=== PATIENT | female | born 1945 ===

== ENCOUNTER 2021-12-19 17:34 | Inpatient (IN) | payer MEDICARE ==
[~2021-12-19] VITALS: Ht 160 cm; Wt 69.9 kg
[~2021-12-19 17:34] MED LIST: ATROPINE 1MG SYG IVP ONE; CACL 1GM SYG IVP ONE; EPINEPHRINE 1MG SYG 10ML IVP ONE; SODIUM BICARB 8.4% 50ML SYRINGE IVP ONE
[2021-12-19] MEDS ORDERED: NOREPINEPHRIN 4MG/NS 250ML 250 ML IV ONE (17:50)
[2021-12-19] MEDS ORDERED: 0.9%NACL 1000ML 1,000 ML IV ONE (17:51)
[2021-12-19 18:02] LABS: BASOPHILS % (AUTO) 0.2 % (0.0-5.0); EOSINOPHILS % (AUTO) 1.3 % (0.0-8.0); HEMATOCRIT 28.9 % (36-48); LYMPHOCYTES % (AUTO) 74.6 % (21.0-51.0); MEAN CORPUSCULAR HEMOGLOBIN 29.2 pg (27.0-33.0); MEAN CORPUSCULAR HGB CONC 28.7 g/dL (32.0-36.0); MEAN CORPUSCULAR VOLUME 101.8 fL (79-99); MONOCYTES % (AUTO) 2.9 % (3.0-13.0); NEUTROPHILS % (AUTO) 17.8 % (40.0-77.0); PLATELET COUNT (AUTO) 141 K/uL (130-400); RED BLOOD CELL COUNT(AUTO) 2.84 MIL/uL (4.00-5.50); RED CELL DISTRIBUTION WIDTH 13.9 % (11.0-15.5); WHITE BLOOD COUNT (AUTO) 8.5 K/uL (4.8-10.8)
[2021-12-19] MEDS ORDERED: SODIUM BICARB 50MEQ 50ML VIAL 50 ML ONE (18:08)
[2021-12-19 18:21] LABS: ALBUMIN 2.9 g/dL (3.5-5.0); BILIRUBIN,TOTAL 0.2 mg/dL (0.2-1.0); CREATININE 5.2 mg/dL (0.5-1.5); TOTAL PROTEIN, SERUM 5.6 g/dL (6.0-8.3)
[2021-12-19 18:34] LABS: ABG BASE EXCESS -16.8 mmol/L (-2.0-3.0); ABG HCO3 12.6 mmol/L (21.0-28.0); ABG PCO2 48 mmHg (32-45)
[2021-12-19 18:36] LABS: B-TYPE NATRIURETIC PEPTIDE 492 pg/mL (0-100)
[2021-12-19 19:08] LABS: APPEARANCE,URINE Cloudy (CLEAR); BILIRUBIN,URINE Negative (NEGATIVE); COLOR,URINE Yellow (YELLOW); GLUCOSE, URINE (UA) Negative (NEGATIVE); KETONES,URINE Negative (NEGATIVE); LEUKOCYTE ESTERASE ,URINE Trace (NEGATIVE); NITRATE,URINE Negative (NEGATIVE); OCCULT BLOOD,URINE Negative (NEGATIVE); PROTEIN,URINE 300 mg/dL (NEGATIVE); UROBILINOGEN,URINE 0.2 mg/dL (0.2-1.0)
[2021-12-19 19:25] LABS: AMORPHOUS SEDIMENT,UR Moderate /LPF (None Seen); BACTERIA,URINE Few /HPF (None Seen); MUCUS,URINE None Seen LPF (None Seen); RBC,URINE 0-1 /HPF (0-1); SQUAMOUS EPITHELIAL CELL,UR Moderate /HPF (0-2)
[2021-12-19 19:26] LABS: INR 1.45 (0.85-1.15); PROTHROMBIN TIME 15.5 SEC (9.6-11.6)
[2021-12-19 19:28] LABS: PARTIAL THROMBOPLASTIN TIME 63.4 SEC (26.3-35.5)
[2021-12-19] MEDS ORDERED: MORPHINE 2 MG SYG IV PRN (19:30)
[2021-12-19] MEDS ORDERED: FENTANYL 2500MCG+NS 250ML 250 ML IV ONE (19:42)
[2021-12-19 19:56] LABS: ABG BASE EXCESS -15.7 mmol/L (-2.0-3.0); ABG HCO3 12.1 mmol/L (21.0-28.0); ABG OXYGEN SATURATION 85.8 % (95.0-99.0); ABG PCO2 36 mmHg (32-45)
[2021-12-19] MEDS ORDERED: MIDAZOLAM 100MG-0.9% NS 100ML 100ML BAG IV ONE (20:30)
[2021-12-19] MEDS ORDERED: CALCIUM GLUC 1GM 1 GM in 0.9%NACL 100ML 100 ML IV ONE (20:30)
[2021-12-19] MEDS ORDERED: FENTANYL 2500MCG+NS 250ML IV.SOLN IV SCH (20:30)
[2021-12-19] MEDS ORDERED: FUROSEMIDE 40 MG UD CUP PO ONE (20:30)
[2021-12-19] MEDS ORDERED: SODIUM BICARB 8.4% 50ML SYRINGE IVP ONE (20:30)
[2021-12-19] MEDS ORDERED: INSULIN HUMULIN R 100 UNIT/ML 3ML IV ONE (20:30)
[2021-12-19] MEDS ORDERED: DEXTROSE 50%-WATER 25 GM/50 ML VIAL IV ONE (20:30)
[2021-12-19 20:35] LABS: HEMATOCRIT 29.1 % (36-48)
[2021-12-19 20:50] LABS: ALBUMIN 2.8 g/dL (3.5-5.0); BILIRUBIN,TOTAL 0.4 mg/dL (0.2-1.0); CREATININE 4.7 mg/dL (0.5-1.5); TOTAL PROTEIN, SERUM 5.5 g/dL (6.0-8.3)
[2021-12-19 21:00] LABS: POTASSIUM 7.5 mmol/L (3.5-5.1)
[2021-12-19] MEDS ORDERED: FUROSEMIDE 40MG VIAL ONE (21:10)
[2021-12-19] MEDS: FUROSEMIDE 20MG VIAL IV SCH (21:21)
[2021-12-19] MEDS: MEROPENEM 1 GM VIAL IVP SCH (21:23)
[2021-12-19] MEDS ORDERED: NA ZIRCON CYCLOSIL(LOKELMA 10GM) PO ONE (23:00)
[2021-12-19 23:30] LABS: CREATININE 4.8 mg/dL (0.5-1.5)
[2021-12-19 23:35] LABS: POTASSIUM 7.4 mmol/L (3.5-5.1)
[2021-12-20] VITALS (54 sets, daily range): BP systolic 116–169; BP diastolic 57–76
[2021-12-20 01:19] LABS: CREATININE 4.7 mg/dL (0.5-1.5)
[2021-12-20] MEDS: INSULIN HUMULIN R 100 UNIT/ML 3ML SQ SCH ×4 (01:21→17:15)
[2021-12-20 01:22] LABS: POTASSIUM 6.3 mmol/L (3.5-5.1)
[2021-12-20] MEDS ORDERED: HEPARIN 5,000 UNIT VIAL IV SCH (02:00)
[2021-12-20] MEDS ORDERED: NOREPINEPHRIN 4MG/NS 250ML 250 ML IV ONE (02:38)
[2021-12-20 02:55] LABS: % IRON SATURATION 56.9 % (22-44)
[2021-12-20] MEDS: SODIUM BICARB 8.4% 50ML SYRING 150 MEQ in DEXTROSE 5%-WATER 1,000 ML IVP SCH ×3 (04:00→08:35)
[2021-12-20 04:07] LABS: BASOPHILS % (AUTO) 0.2 % (0.0-5.0); HEMATOCRIT 31.6 % (36-48); LYMPHOCYTES % (AUTO) 6.3 % (21.0-51.0); MEAN CORPUSCULAR HEMOGLOBIN 29.2 pg (27.0-33.0); MEAN CORPUSCULAR HGB CONC 32.9 g/dL (32.0-36.0); MEAN CORPUSCULAR VOLUME 88.8 fL (79-99); MONOCYTES % (AUTO) 4.6 % (3.0-13.0); NEUTROPHILS % (AUTO) 88.5 % (40.0-77.0); PLATELET COUNT (AUTO) 156 K/uL (130-400); RED BLOOD CELL COUNT(AUTO) 3.56 MIL/uL (4.00-5.50); RED CELL DISTRIBUTION WIDTH 13.7 % (11.0-15.5)
[2021-12-20 04:29] LABS: ALBUMIN 3.5 g/dL (3.5-5.0); BILIRUBIN,TOTAL 0.4 mg/dL (0.2-1.0); CREATININE 3.3 mg/dL (0.5-1.5); POTASSIUM 4.6 mmol/L (3.5-5.1); TOTAL PROTEIN, SERUM 6.7 g/dL (6.0-8.3)
[2021-12-20 04:36] LABS: B-TYPE NATRIURETIC PEPTIDE 599 pg/mL (0-100)
[2021-12-20 05:24] LABS: ERYTHROCYTE SEDIMENTATION RATE 11 MM/HR (0-30)
[2021-12-20] MEDS: FUROSEMIDE 20MG VIAL IV SCH (08:00)
[2021-12-20] MEDS: FAMOTIDINE 20MG VIAL IV SCH (08:24)
[2021-12-20] MEDS ORDERED: VANCOMYCIN PROTOCOL PER PHARMACY IV SCH (08:30)
[2021-12-20 08:31] LABS: ABG BASE EXCESS -2.3 mmol/L (-2.0-3.0); ABG HCO3 21.2 mmol/L (21.0-28.0); ABG PCO2 31 mmHg (32-45)
[2021-12-20] MEDS: ASPIRIN 81MG CHEW TAB PO SCH (08:53)
[2021-12-20] MEDS: HEPARIN 5,000 UNIT VIAL SQ SCH ×2 (08:54→20:24)
[2021-12-20] MEDS ORDERED: VANCOMYCIN 1G/250ML KIT 250 ML IV SCH (09:00)
[2021-12-20 14:48] LABS: ABG BASE EXCESS -0.4 mmol/L (-2.0-3.0); ABG HCO3 22.5 mmol/L (21.0-28.0); ABG PCO2 31 mmHg (32-45)
[2021-12-20 18:55] LABS: HEPATITIS B SURFACE ANTIGEN Non-Reactive (Negative)
[2021-12-20] MEDS: MEROPENEM 1 GM VIAL IVP SCH (20:21)
[2021-12-20] MEDS ORDERED: ACETAMINOPHEN 650 MG/20.3 ML UDCUP PEG PRN (23:30)
[2021-12-21] VITALS (25 sets, daily range): BP systolic 90–167; BP diastolic 49–87
[2021-12-21] MEDS ORDERED: LABETALOL 20MG VIAL IV ONE
[2021-12-21 04:24] LABS: ALBUMIN 2.8 g/dL (3.5-5.0); BILIRUBIN,TOTAL 0.6 mg/dL (0.2-1.0); CREATININE 4.6 mg/dL (0.5-1.5); MAGNESIUM 1.9 mg/dL (1.80-2.40); PHOSPHORUS 4.3 mg/dL (2.5-4.9); POTASSIUM 5.6 mmol/L (3.5-5.1); TOTAL PROTEIN, SERUM 5.8 g/dL (6.0-8.3)
[2021-12-21] MEDS: INSULIN HUMULIN R 100 UNIT/ML 3ML SQ SCH ×4 (06:39→17:11)
[2021-12-21] MEDS: HEPARIN 5,000 UNIT VIAL SQ SCH ×2 (08:21→20:08)
[2021-12-21] MEDS: ASPIRIN 81MG CHEW TAB PO SCH (08:21)
[2021-12-21] MEDS: FAMOTIDINE 20MG VIAL IV SCH (08:22)
[2021-12-21] MEDS: SODIUM BICARB 50MEQ 50ML VIAL IV SCH (09:53)
[2021-12-21] MEDS: KAYEXALATE 15GM/60ML PO SCH (09:53)
[2021-12-21] MEDS: INSULIN HUMULIN R 100 UNIT/ML 3ML IV SCH (09:56)
[2021-12-21] MEDS ORDERED: AMIODARONE 150MG VIAL 150 MG in DEXTROSE 5%-WATER 100 ML IV SCH (11:30)
[2021-12-21] MEDS: AMIODARONE 900MG VIAL 360 MG in DEXTROSE 5%-WATER 200 ML IV SCH (11:56)
[2021-12-21] MEDS: AMIODARONE 540 MG/D5W 300ML (0.5MG/MIN) IV SCH ×2 (18:24)
[2021-12-21] MEDS: MEROPENEM 1 GM VIAL IVP SCH (20:06)
[2021-12-22] VITALS (23 sets, daily range): BP systolic 145–173; BP diastolic 55–78
[2021-12-22 03:48] LABS: BASOPHILS % (AUTO) 0.1 % (0.0-5.0); HEMATOCRIT 23.9 % (36-48); LYMPHOCYTES % (AUTO) 3.9 % (21.0-51.0); MEAN CORPUSCULAR HEMOGLOBIN 28.8 pg (27.0-33.0); MEAN CORPUSCULAR HGB CONC 32.6 g/dL (32.0-36.0); MEAN CORPUSCULAR VOLUME 88.2 fL (79-99); MONOCYTES % (AUTO) 3.3 % (3.0-13.0); NEUTROPHILS % (AUTO) 90.3 % (40.0-77.0); PLATELET COUNT (AUTO) 87 K/uL (130-400); RED BLOOD CELL COUNT(AUTO) 2.71 MIL/uL (4.00-5.50); RED CELL DISTRIBUTION WIDTH 14.3 % (11.0-15.5); WHITE BLOOD COUNT (AUTO) 13.5 K/uL (4.8-10.8)
[2021-12-22 04:07] LABS: ALBUMIN 2.3 g/dL (3.5-5.0); BILIRUBIN,TOTAL 0.5 mg/dL (0.2-1.0); CREATININE 5.1 mg/dL (0.5-1.5); POTASSIUM 4.4 mmol/L (3.5-5.1)
[2021-12-22] MEDS: INSULIN HUMULIN R 100 UNIT/ML 3ML SQ SCH ×5 (06:19→23:54)
[2021-12-22] MEDS: ASPIRIN 81MG CHEW TAB PO SCH (08:47)
[2021-12-22] MEDS ORDERED: VANCOMYCIN 1G/250ML KIT 250 ML IV SCH (09:00)
[2021-12-22] MEDS: HEPARIN 5,000 UNIT VIAL SQ SCH ×2 (09:14→19:56)
[2021-12-22 09:38] LABS: HEMATOCRIT 24.4 % (36-48); MEAN CORPUSCULAR HEMOGLOBIN 30.3 pg (27.0-33.0); MEAN CORPUSCULAR HGB CONC 33.6 g/dL (32.0-36.0); PLATELET COUNT (AUTO) 98 K/uL (130-400); RED BLOOD CELL COUNT(AUTO) 2.71 MIL/uL (4.00-5.50); RED CELL DISTRIBUTION WIDTH 14.4 % (11.0-15.5); WHITE BLOOD COUNT (AUTO) 13.4 K/uL (4.8-10.8)
[2021-12-22] MEDS: SODIUM BICARB 50MEQ 50ML VIAL IV SCH (10:00)
[2021-12-22] MEDS: KAYEXALATE 15GM/60ML PO SCH (10:00)
[2021-12-22] MEDS: INSULIN HUMULIN R 100 UNIT/ML 3ML IV SCH (10:00)
[2021-12-22 10:37] LABS: BAND NEUTROPHILS % (MANUAL) 14 % (0-2); LYMPHOCYTES % (MANUAL) 4 % (22-44); MAN.DIFF COMMENT-IMPRESSION MANUAL DIFFERENTIAL; SEGMENTED NEUTROPHILS % 82 % (40-70)
[2021-12-22 10:38] LABS: PLATELET MORPHOLOGY COMMENT MARKED DECREASE
[2021-12-22] MEDS: FAMOTIDINE 20MG TAB NG SCH (10:41)
[2021-12-22] MEDS: ARTIFICAL TEARS SOL 15 ML OU PRN (21:14)
[2021-12-22] MEDS: LABETALOL 20MG VIAL IV PRN (21:15)
[2021-12-23] VITALS (24 sets, daily range): BP systolic 150–168; BP diastolic 55–79
[2021-12-23] MEDS: LABETALOL 20MG VIAL IV PRN ×2 (03:28→21:46)
[2021-12-23 04:36] LABS: BASOPHILS % (AUTO) 0.1 % (0.0-5.0); EOSINOPHILS % (AUTO) 0.1 % (0.0-8.0); LYMPHOCYTES % (AUTO) 4.5 % (21.0-51.0); MEAN CORPUSCULAR HEMOGLOBIN 28.6 pg (27.0-33.0); MEAN CORPUSCULAR HGB CONC 31.7 g/dL (32.0-36.0); MEAN CORPUSCULAR VOLUME 90.4 fL (79-99); MONOCYTES % (AUTO) 4.2 % (3.0-13.0); NEUTROPHILS % (AUTO) 89.9 % (40.0-77.0); NUCLEATED RED BLOOD CELLS 0.1 % (0.0-0.19); PLATELET COUNT (AUTO) 107 K/uL (130-400); RED BLOOD CELL COUNT(AUTO) 3.32 MIL/uL (4.00-5.50); RED CELL DISTRIBUTION WIDTH 14.2 % (11.0-15.5)
[2021-12-23 04:54] LABS: ALBUMIN 2.8 g/dL (3.5-5.0); BILIRUBIN,TOTAL 0.5 mg/dL (0.2-1.0); CREATININE 5.4 mg/dL (0.5-1.5); MAGNESIUM 2.3 mg/dL (1.80-2.40); PHOSPHORUS 5.5 mg/dL (2.5-4.9); POTASSIUM 4.1 mmol/L (3.5-5.1); TOTAL PROTEIN, SERUM 6.3 g/dL (6.0-8.3)
[2021-12-23] MEDS: INSULIN HUMULIN R 100 UNIT/ML 3ML SQ SCH ×4 (06:00→23:42)
[2021-12-23] MEDS: FAMOTIDINE 20MG TAB NG SCH (08:22)
[2021-12-23] MEDS: ASPIRIN 81MG CHEW TAB PO SCH (08:23)
[2021-12-23] MEDS: HEPARIN 5,000 UNIT VIAL SQ SCH ×2 (08:48→19:57)
[2021-12-23] MEDS: ARTIFICAL TEARS SOL 15 ML OU PRN ×2 (09:28→21:46)
[2021-12-23] MEDS ORDERED: IPRATROPIUM/ALBUTEROL SULFATE 3 ML SOLUTION IH PRN (09:30)
[2021-12-23] MEDS ORDERED: AMIODARONE 900MG VIAL IV ONE (22:50)
[2021-12-23] MEDS ORDERED: DEXTROSE 5%-WATER 500 ML IV ONE (22:52)
[2021-12-23] MEDS: AMIODARONE 900MG VIAL 360 MG in DEXTROSE 5%-WATER 200 ML IV SCH (22:57)
[2021-12-24] VITALS (24 sets, daily range): BP systolic 152–169; BP diastolic 64–85
[2021-12-24 00:44] LABS: BASOPHILS % (AUTO) 0.1 % (0.0-5.0); HEMATOCRIT 25.6 % (36-48); LYMPHOCYTES % (AUTO) 2.8 % (21.0-51.0); MEAN CORPUSCULAR HEMOGLOBIN 28.8 pg (27.0-33.0); MEAN CORPUSCULAR HGB CONC 31.6 g/dL (32.0-36.0); MEAN CORPUSCULAR VOLUME 91.1 fL (79-99); NEUTROPHILS % (AUTO) 92.5 % (40.0-77.0); PLATELET COUNT (AUTO) 108 K/uL (130-400); RED BLOOD CELL COUNT(AUTO) 2.81 MIL/uL (4.00-5.50); WHITE BLOOD COUNT (AUTO) 13.4 K/uL (4.8-10.8)
[2021-12-24 01:03] LABS: ALBUMIN 2.4 g/dL (3.5-5.0); BILIRUBIN,TOTAL 0.5 mg/dL (0.2-1.0); CREATININE 5.6 mg/dL (0.5-1.5); POTASSIUM 3.6 mmol/L (3.5-5.1); TOTAL PROTEIN, SERUM 5.9 g/dL (6.0-8.3)
[2021-12-24] MEDS: INSULIN HUMULIN R 100 UNIT/ML 3ML SQ SCH ×4 (06:01→23:53)
[2021-12-24] MEDS: FAMOTIDINE 20MG TAB NG SCH (08:19)
[2021-12-24] MEDS: ASPIRIN 81MG CHEW TAB PO SCH (08:19)
[2021-12-24] MEDS: HEPARIN 5,000 UNIT VIAL SQ SCH ×2 (08:20→20:26)
[2021-12-25] VITALS (24 sets, daily range): BP systolic 141–173; BP diastolic 57–85
[2021-12-25 03:29] LABS: ABG BASE EXCESS -2.6 mmol/L (-2.0-3.0); ABG HCO3 18.5 mmol/L (21.0-28.0); ABG OXYGEN SATURATION 98.2 % (95.0-99.0); ABG PCO2 24 mmHg (32-45)
[2021-12-25 04:27] LABS: BASOPHILS % (AUTO) 0.2 % (0.0-5.0); EOSINOPHILS % (AUTO) 0.1 % (0.0-8.0); HEMATOCRIT 26.6 % (36-48); MEAN CORPUSCULAR HEMOGLOBIN 28.8 pg (27.0-33.0); MEAN CORPUSCULAR HGB CONC 31.2 g/dL (32.0-36.0); MEAN CORPUSCULAR VOLUME 92.4 fL (79-99); MONOCYTES % (AUTO) 6.4 % (3.0-13.0); NEUTROPHILS % (AUTO) 88.4 % (40.0-77.0); PLATELET COUNT (AUTO) 120 K/uL (130-400); RED BLOOD CELL COUNT(AUTO) 2.88 MIL/uL (4.00-5.50); RED CELL DISTRIBUTION WIDTH 13.9 % (11.0-15.5); WHITE BLOOD COUNT (AUTO) 11.3 K/uL (4.8-10.8)
[2021-12-25 04:58] LABS: ALBUMIN 2.3 g/dL (3.5-5.0); BILIRUBIN,TOTAL 0.4 mg/dL (0.2-1.0); CREATININE 5.7 mg/dL (0.5-1.5); MAGNESIUM 2.4 mg/dL (1.80-2.40); PHOSPHORUS 5.2 mg/dL (2.5-4.9); POTASSIUM 3.5 mmol/L (3.5-5.1)
[2021-12-25] MEDS: INSULIN HUMULIN R 100 UNIT/ML 3ML SQ SCH ×3 (05:26→18:56)
[2021-12-25] MEDS ORDERED: CALC667C10 PO (08:41)
[2021-12-25] MEDS ORDERED: FURO20TA4 PO (08:41)
[2021-12-25] MEDS ORDERED: SIMV-43 PO (08:41)
[2021-12-25] MEDS ORDERED: LINA5TAB PO (08:41)
[2021-12-25] MEDS ORDERED: AMLO-258 PO (08:41)
[2021-12-25] MEDS ORDERED: CARV3.12 PO (08:41)
[2021-12-25] MEDS ORDERED: VANCOMYCIN 1G/250ML KIT 250 ML IV SCH (09:00)
[2021-12-25] MEDS: FAMOTIDINE 20MG TAB NG SCH (09:46)
[2021-12-25] MEDS: HEPARIN 5,000 UNIT VIAL SQ SCH ×2 (09:49→21:48)
[2021-12-25] MEDS: AMIODARONE 540 MG/D5W 300ML (0.5MG/MIN) IV SCH ×2 (12:00)
[2021-12-25] MEDS: AMIODARONE 200 MG TABLET PO SCH (21:47)
[2021-12-25] MEDS: BALSAM PERU/CASTOR OIL 60 GM TUBE TP SCH (21:47)
[2021-12-26] VITALS (24 sets, daily range): BP systolic 150–191; BP diastolic 61–77
[2021-12-26] MEDS: INSULIN HUMULIN R 100 UNIT/ML 3ML SQ SCH ×4 (00:20→18:39)
[2021-12-26 03:21] LABS: ABG BASE EXCESS 0.4 mmol/L (-2.0-3.0); ABG HCO3 21.3 mmol/L (21.0-28.0); ABG OXYGEN SATURATION 96.8 % (95.0-99.0); ABG PCO2 26 mmHg (32-45)
[2021-12-26 04:38] LABS: BASOPHILS % (AUTO) 0.2 % (0.0-5.0); EOSINOPHILS % (AUTO) 0.5 % (0.0-8.0); HEMATOCRIT 26.7 % (36-48); LYMPHOCYTES % (AUTO) 5.6 % (21.0-51.0); MEAN CORPUSCULAR HEMOGLOBIN 29.1 pg (27.0-33.0); MEAN CORPUSCULAR HGB CONC 32.2 g/dL (32.0-36.0); MEAN CORPUSCULAR VOLUME 90.2 fL (79-99); MONOCYTES % (AUTO) 6.4 % (3.0-13.0); NEUTROPHILS % (AUTO) 84.7 % (40.0-77.0); PLATELET COUNT (AUTO) 145 K/uL (130-400); RED BLOOD CELL COUNT(AUTO) 2.96 MIL/uL (4.00-5.50); RED CELL DISTRIBUTION WIDTH 14.2 % (11.0-15.5); WHITE BLOOD COUNT (AUTO) 8.7 K/uL (4.8-10.8)
[2021-12-26 04:49] LABS: ALBUMIN 2.2 g/dL (3.5-5.0); BILIRUBIN,TOTAL 0.4 mg/dL (0.2-1.0); CREATININE 5.9 mg/dL (0.5-1.5); MAGNESIUM 2.6 mg/dL (1.80-2.40); PHOSPHORUS 4.2 mg/dL (2.5-4.9); POTASSIUM 3.4 mmol/L (3.5-5.1); TOTAL PROTEIN, SERUM 6.2 g/dL (6.0-8.3)
[2021-12-26] MEDS: AMIODARONE 200 MG TABLET PO SCH ×2 (09:33→21:18)
[2021-12-26] MEDS: FAMOTIDINE 20MG TAB NG SCH (09:33)
[2021-12-26] MEDS: BALSAM PERU/CASTOR OIL 60 GM TUBE TP SCH ×3 (09:34→21:18)
[2021-12-26] MEDS: HEPARIN 5,000 UNIT VIAL SQ SCH ×2 (09:34→21:20)
[2021-12-26] MEDS: HYDRALAZINE HCL 10 MG TABLET PO PRN (23:15)
[2021-12-27] VITALS (25 sets, daily range): BP systolic 157–182; BP diastolic 54–72
[2021-12-27] MEDS: INSULIN HUMULIN R 100 UNIT/ML 3ML SQ SCH ×5 (00:26→23:44)
[2021-12-27 04:21] LABS: BASOPHILS % (AUTO) 0.2 % (0.0-5.0); EOSINOPHILS % (AUTO) 0.7 % (0.0-8.0); HEMATOCRIT 27.7 % (36-48); LYMPHOCYTES % (AUTO) 4.9 % (21.0-51.0); MEAN CORPUSCULAR HEMOGLOBIN 29.1 pg (27.0-33.0); MEAN CORPUSCULAR HGB CONC 31.4 g/dL (32.0-36.0); MEAN CORPUSCULAR VOLUME 92.6 fL (79-99); MONOCYTES % (AUTO) 5.4 % (3.0-13.0); NEUTROPHILS % (AUTO) 86.8 % (40.0-77.0); PLATELET COUNT (AUTO) 154 K/uL (130-400); RED BLOOD CELL COUNT(AUTO) 2.99 MIL/uL (4.00-5.50); RED CELL DISTRIBUTION WIDTH 14.2 % (11.0-15.5); WHITE BLOOD COUNT (AUTO) 12.2 K/uL (4.8-10.8)
[2021-12-27 04:44] LABS: ALBUMIN 2.5 g/dL (3.5-5.0); BILIRUBIN,TOTAL 0.4 mg/dL (0.2-1.0); CREATININE 7.6 mg/dL (0.5-1.5); MAGNESIUM 2.4 mg/dL (1.80-2.40); PHOSPHORUS 7.4 mg/dL (2.5-4.9); POTASSIUM 4.1 mmol/L (3.5-5.1); TOTAL PROTEIN, SERUM 7.1 g/dL (6.0-8.3)
[2021-12-27] MEDS: HYDRALAZINE HCL 10 MG TABLET PO PRN (05:09)
[2021-12-27] MEDS ORDERED: HYDRALAZINE HCL 10 MG TABLET PO PRN (05:30)
[2021-12-27] MEDS: AMIODARONE 200 MG TABLET PO SCH ×2 (08:37→20:26)
[2021-12-27] MEDS: BALSAM PERU/CASTOR OIL 60 GM TUBE TP SCH ×3 (08:37→20:27)
[2021-12-27] MEDS: FAMOTIDINE 20MG TAB NG SCH (08:37)
[2021-12-27] MEDS: HEPARIN 5,000 UNIT VIAL SQ SCH ×2 (08:37→20:26)
[2021-12-28] VITALS (24 sets, daily range): BP systolic 135–170; BP diastolic 55–73
[2021-12-28] MEDS: INSULIN HUMULIN R 100 UNIT/ML 3ML SQ SCH ×3 (05:42→17:59)
[2021-12-28] MEDS: AMIODARONE 200 MG TABLET PO SCH ×2 (09:12→19:59)
[2021-12-28] MEDS: FAMOTIDINE 20MG TAB NG SCH (09:12)
[2021-12-28] MEDS: BALSAM PERU/CASTOR OIL 60 GM TUBE TP SCH ×3 (09:12→19:59)
[2021-12-28] MEDS: HEPARIN 5,000 UNIT VIAL SQ SCH ×2 (09:13→20:25)
[2021-12-28] MEDS ORDERED: PHARMACY COMMUNICATION MISC SCH (22:00)
[2021-12-28] MEDS: LORAZEPAM 2 MG/ML 1 ML VIAL IM PRN (23:26)
[2021-12-28] MEDS: MORPHINE 2 MG SYG IVP PRN (23:27)
[2021-12-29] VITALS: BP 141/48
[2021-12-29] MEDS: INSULIN HUMULIN R 100 UNIT/ML 3ML SQ SCH
[2021-12-29 01:00] VITALS: BP 139/54
[2021-12-29] MEDS: LORAZEPAM 2 MG/ML 1 ML VIAL IM PRN ×2 (01:57→04:34)
[2021-12-29] MEDS: MORPHINE 2 MG SYG IVP PRN ×2 (01:57→04:34)
[2021-12-29 02:00] VITALS: BP 153/53
[2021-12-29 03:00] VITALS: BP 114/43
[2021-12-29 04:00] VITALS: BP 119/44
== END 2021-12-29 04:50 | DRG 207 ==
LOC: EDH 17:34 → OBSVTOIN 19:05 → EDHIP 19:05 → 2CH 12-20 00:30
PROVIDERS: ADMIT Internal Medicine; ATTEND Internal Medicine
PROC: 5A1955Z Respiratory Ventilation, Greater than 96 Consecutive Hours (ICD-10-PCS; principal; 2021-12-19)
PROC: 0BH17EZ Insertion of Endotracheal Airway into Trachea, Via Natural or Artificial Opening (ICD-10-PCS; 2021-12-19)
PROC: 5A1D70Z Performance of Urinary Filtration, Intermittent, Less than 6 Hours Per Day (ICD-10-PCS; 2021-12-20)
DX: J96.01 Acute respiratory failure with hypoxia (principal); J18.9 Pneumonia, unspecified organism; N18.6 End stage renal disease; K72.00 Acute and subacute hepatic failure without coma; N39.0 Urinary tract infection, site not specified; E87.4 Mixed disorder of acid-base balance; N17.9 Acute kidney failure, unspecified; G93.1 Anoxic brain damage, not elsewhere classified; E87.1 Hypo-osmolality and hyponatremia; I12.0 Hypertensive chronic kidney disease with stage 5 chronic kidney disease or end stage renal disease; I46.9 Cardiac arrest, cause unspecified; E11.65 Type 2 diabetes mellitus with hyperglycemia; E87.5 Hyperkalemia; Z66 Do not resuscitate; Z99.2 Dependence on renal dialysis; E11.22 Type 2 diabetes mellitus with diabetic chronic kidney disease; E78.5 Hyperlipidemia, unspecified; I48.91 Unspecified atrial fibrillation; Z20.822 Contact with and (suspected) exposure to COVID-19; Z79.899 Other long term (current) drug therapy; E87.6 Hypokalemia; Z79.4 Long term (current) use of insulin; L89.151 Pressure ulcer of sacral region, stage 1
CPT/HCPCS: 31500; 36415; 36600; 51702; 70450; 71045; 80048; 80053; 80061; 80202; 81001; 82140; 82435; 82550; 82728; 82803; 82947; 82948; 83540; 83550; 83605; 83735; 83880; 84100; 84132; 84295; 84484; 85014; 85018; 85025; 85610; 85651; 85730; 86701; 86704; 86706; 87040; 87071; 87088; 87205; 87340; 87390; 87635; 90935; 92950; 93005; 93306; 94002; 94003; 99291; G0378; J0171; J0282; J0461; J0610; J1644; J1815; J1940; J2060; J2185; J3010; J3370; J3490; J7030; J7060; J7070